=== PATIENT | female | born 1950 | race Caucasian/White ===

== ENCOUNTER 2016-09-27 09:00 | Emergency (ER) | payer BC ==
[2016-09-27] MEDS ORDERED: Ketorolac 60 MG/2 ML SDV IM ONE (09:34)
--- NOTE | 2016-09-27 09:40 | EDM.PDOC ---
ED HPI GENERAL MEDICAL PROBLEM - General Chief Complaint: Lower Extremity Injury/Pain Stated Complaint: RT HIP PAIN Time Seen by Provider: 09/27/16 09:08 Source of Information: Reports: Patient, Family History Limitations: Reports: No Limitations - History of Present Illness INITIAL COMMENTS - FREE TEXT/NARRATIVE: 65 y.o.w.f came to the ed with her family due to acute pain at her right lateral hip. Pt was getting up this am, when suddenly he felt spasm and pain at her lat hip area. 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 Pt had a " stomach ulcer" from taking Motrin PO 1 year ago. No other acute medical issues at this time. Onset: Sudden Onset Date: 09/27/16 Onset Time: 07:00 Duration: Hour(s): Location: Reports: Lower Extremity, Right Quality: Reports: Burning, Dull, Pressure Improves with: Reports: Immobilization Worsens with: Reports: Movement Context: Reports: Activity Associated Symptoms: Reports: No Other Symptoms R hip Pain Score (Numeric/FACES): 5 - Related Data Allergies Allergy/AdvReac Type Severity Reaction Status Date / Time acetaminophen [From Percocet] Allergy Mild Hives Verified 09/27/16 09:15 oxycodone HCl [From Percocet] Allergy Mild Hives Verified 05/06/15 05:59 Sulfa (Sulfonamide Allergy Mild Anaphylactic Verified 05/06/15 05:59 Antibiotics) Shock propoxyphene HCl Allergy Unknown Hives Verified 05/06/15 05:59 [From Darvon] Home Meds: Home Meds Cyclobenzaprine [Flexeril] 10 mg PO TID PRN 09/27/16 [History] Orphenadrine [Norflex] 100 mg PO BID PRN #16 tab.er 09/27/16 [Rx] traMADol [Ultram] 50 mg PO Q6H PRN #16 tab 09/27/16 [Rx] Past Medical History - Past Surgical History Musculoskeletal Surgical History: Reports: Other (See Below) Social & Family History - Tobacco Use Smoking Status *Q: Former Smoker Years of Tobacco use: 35 Packs/Tins Daily: 0.5 Month Tobacco Last Used: UNKNOWN - Recreational Drug Use Recreational Drug Use: No Review of Systems - Review of Systems Review Of Systems: See Below Constitutional: Reports: No Symptoms Eyes: Reports: No Symptoms Ears: Reports: No Symptoms Nose: Reports: No Symptoms Mouth/Throat: Reports: No Symptoms Respiratory: Reports: No Symptoms Cardiovascular: Reports: No Symptoms GI/Abdominal: Reports: No Symptoms Genitourinary: Reports: No Symptoms Musculoskeletal: Reports: Other (r hip pain) Skin: Reports: No Symptoms Neurological: Reports: No Symptoms Psychiatric: Reports: No Symptoms ED EXAM, GENERAL - Physical Exam Exam: See Below Exam Limited By: No Limitations General Appearance: Alert, WD/WN, Mild Distress Eye Exam: Bilateral Eye: Normal Inspection Ears: Normal External Exam Ear Exam: Bilateral Ear: Auricle Normal Nose: Normal Inspection, Normal Mucosa Throat/Mouth: Normal Inspection, Normal Lips Head: Atraumatic, Normocephalic Neck: Normal Inspection, Supple, Non-Tender Respiratory/Chest: No Respiratory Distress, Lungs Clear, Normal Breath Sounds, No Accessory Muscle Use, Chest Non-Tender Cardiovascular: Normal Peripheral Pulses, Regular Rate, Rhythm, No Edema Peripheral Pulses: 2+: Femoral (L), Femoral (R) GI/Abdominal: Normal Bowel Sounds, Soft, Non-Tender, No Organomegaly (Female) Exam: Deferred Rectal (Female) Exam: Deferred Back Exam: Normal Inspection, Full Range of Motion Extremities: Other (tenderness and swelling at the area of the trochanter major) Neurological: Alert, Oriented, CN II-XII Intact, Normal Cognition Psychiatric: Normal Affect, Normal Mood Skin Exam: Warm, Dry, Intact, Normal Color, No Rash Lymphatic: No Adenopathy Course - Vital Signs Text/Narrative:: 65 y.o.w.f came to the ed with her family due to acute pain at her right lateral hip. Pt was getting up this am, when suddenly he felt spasm and pain at her lat hip area. 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 Pt had a " stomach ulcer" from taking Motrin PO 1 year ago. No other acute medical issues at this time. PE: Tenderness and swelling r trochanter major, no trauma Impression: right sided Trochanter bursitis Tx: Toradol IM, Ice. Reexam: Improved Plan: D/C with instructions Last Recorded V/S: Last Vital Signs Temp 36.6 C 09/27/16 09:08 Pulse 85 09/27/16 09:08 Resp 20 09/27/16 09:08 BP 137/69 09/27/16 09:08 Pulse Ox 98 09/27/16 09:08 - Orders/Labs/Meds Orders: Active Orders 24 hr Category Date Time Status Cooling Warming Measures [RC] ASDIRECTED Care 09/27/16 09:33 Ordered Ice Bag [Ice Therapy] [OM.PC] Routine Oth 09/27/16 09:33 Ordered Meds: Medications Discontinued Medications Generic Name Dose Route Start Last Admin Trade Name Freq PRN Reason Stop Dose Admin Ketorolac Tromethamine 60 mg 09/27/16 09:34 09/27/16 09:45 Toradol IM 09/27/16 09:35 60 mg ONETIME ONE Administration Departure - Departure Time of Disposition: 09:46 Disposition: Home, Self-Care 01 Condition: Good Clinical Impression: Trochanteric bursitis of right hip - Discharge Information Prescriptions: Orphenadrine [Norflex] 100 mg PO BID PRN #16 tab.er PRN Reason: leg spasm traMADol [Ultram] 50 mg PO Q6H PRN #16 tab PRN Reason: severe pain Instructions: Trochanteric Bursitis With Rehab-SportsMed Referrals: Allan Ojeda MD [Primary Care Provider] - Forms: ED Department Discharge Additional Instructions: Please apply ICE to the affected area, please take Ultram and Tylenol for pain, please f/u with your regular MD at clinic in 2-3 days, please come back if your symptoms get worse acutely. - My Orders Last 24 Hours: My Active Orders 09/27/16 09:33 Cooling Warming Measures [RC] ASDIRECTED Ice Bag [Ice Therapy] [OM.PC] Routine - Assessment/Plan Last 24 Hours: My Active Orders 09/27/16 09:33 Cooling Warming Measures [RC] ASDIRECTED Ice Bag [Ice Therapy] [OM.PC] Routine
[2016-09-27 10:48] VITALS: BP 132/83
== END 2016-09-27 10:02 | disposition home or self-care (01) ==
LOC: FB.ED 09:00
DX: M70.61 Trochanteric bursitis, right hip (principal); Z88.5 Allergy status to narcotic agent; Z88.8 Allergy status to other drugs, medicaments and biological substances; Z88.2 Allergy status to sulfonamides; Z87.891 Personal history of nicotine dependence
CPT/HCPCS: 96372; 99283; J1885

== ENCOUNTER 2017-09-16 06:42 | Day surgery (SDC) | payer BC ==
[2017-09-16] MEDS ORDERED: Ketorolac 60 MG/2 ML SDV IM ONE (06:56)
--- NOTE | 2017-09-16 06:57 | EDM.PDOC ---
ED HPI GENERAL MEDICAL PROBLEM - General Stated Complaint: LEFT UPPER ARM PAIN Time Seen by Provider: 09/16/17 06:42 Source of Information: Reports: Patient, Family History Limitations: Reports: Physical Impairment (left arm pain) - History of Present Illness INITIAL COMMENTS - FREE TEXT/NARRATIVE: 66 y.o.w.f came with her daughter after the pt fell onto her left shoulder. The dog pulled too strong and made to fall onto her shoulder. Pt denied any other injuries. She has severe pain when abducting her left shoulder/arm. She can move he elbow well. No N/V/D no SOB, Pt does not take , Coumdine are any other blood thinners. She does not take any meds Pt denies any other acute medical issues. BP 135/81 RR 20 Pulse ox 98% on RA temp 36.8 pulse 87 Onset Date: 09/16/17 Onset Time: 05:10 Duration: Minutes: Location: Reports: Upper Extremity, Left Quality: Reports: Ache, Dull, Pressure, Throbbing Severity: Moderate Improves with: Reports: Rest Worsens with: Reports: Movement Context: Reports: Trauma (fall) Associated Symptoms: Reports: No Other Symptoms left shoulder Pain Score (Numeric/FACES): 10 - Related Data Allergies Allergy/AdvReac Type Severity Reaction Status Date / Time acetaminophen [From Percocet] Allergy Mild Hives Verified 09/27/16 09:15 oxycodone HCl [From Percocet] Allergy Mild Hives Verified 05/06/15 05:59 Sulfa (Sulfonamide Allergy Mild Anaphylactic Verified 05/06/15 05:59 Antibiotics) Shock propoxyphene HCl Allergy Unknown Hives Verified 05/06/15 05:59 [From Darvon] Home Meds: Home Meds Acetaminophen/HYDROcodone [Vanduser 325-10 MG] 1 tab PO Q4H PRN #64 tablet [Rx] Docusate Sodium [Colace] 100 mg PO BID PRN cap 09/16/17 [Rx] Past Medical History Gastrointestinal History: Reports: PUD Other Gastrointestinal History: hx bleeding ulcer in past Genitourinary History: Reports: None Musculoskeletal History: Reports: Back Pain, Chronic Psychiatric History: Reports: Depression - Infectious Disease History Infectious Disease History: Reports: Chicken Pox - Past Surgical History Musculoskeletal Surgical History: Reports: Other (See Below) Social & Family History - Family History Family Medical History: Noncontributory - Caffeine Use Caffeine Use: Reports: Coffee, Soda Review of Systems - Review of Systems Review Of Systems: See Below Constitutional: Reports: No Symptoms Eyes: Reports: No Symptoms Ears: Reports: No Symptoms Nose: Reports: No Symptoms Mouth/Throat: Reports: No Symptoms Respiratory: Reports: No Symptoms Cardiovascular: Reports: No Symptoms GI/Abdominal: Reports: No Symptoms Genitourinary: Reports: No Symptoms Musculoskeletal: Reports: No Symptoms Skin: Reports: No Symptoms Neurological: Reports: No Symptoms Psychiatric: Reports: No Symptoms ED EXAM, GENERAL - Physical Exam Exam: See Below Exam Limited By: Physical Impairment (left) General Appearance: Alert, WD/WN, Mild Distress Eye Exam: Bilateral Eye: Normal Inspection Ears: Normal External Exam Ear Exam: Bilateral Ear: Auricle Normal Nose: Normal Inspection, Normal Mucosa, No Blood Throat/Mouth: Normal Lips, Normal Voice, No Airway Compromise Head: Atraumatic, Normocephalic Neck: Normal Inspection, Supple, Non-Tender, Full Range of Motion Respiratory/Chest: No Respiratory Distress, Lungs Clear, Normal Breath Sounds, Chest Non-Tender Cardiovascular: Normal Peripheral Pulses, Regular Rate, Rhythm, No Edema, No Gallop Peripheral Pulses: 1+: Radial (R) GI/Abdominal: Normal Bowel Sounds, Soft, Non-Tender, No Organomegaly (Female) Exam: Deferred Rectal (Female) Exam: Deferred Back Exam: Normal Inspection, Full Range of Motion Extremities: Arm Pain, Limited Range of Motion (left shoulder ) Neurological: Alert, Oriented, CN II-XII Intact, Normal Cognition, Normal Gait Psychiatric: Normal Affect, Normal Mood Skin Exam: Warm, Dry, Intact Lymphatic: No Adenopathy Course - Vital Signs Text/Narrative:: 66 y.o.w.f came with her daughter after the pt fell onto her left shoulder. The dog pulled too strong and made to fall onto her shoulder. Pt denied any other injuries. She has severe pain when abducting her left shoulder/arm. She can move he elbow well. No N/V/D no SOB, Pt does not take , Coumdine are any other blood thinners. She does not take any meds Pt denies any other acute medical issues. BP 135/81 RR 20 Pulse ox 98% on RA temp 36.8 pulse 87 PE: 66 y.o.w.f with left shoulder pain Imaging: left prox humerus Fx, angulated Labs: WBC 19K Neutros 90% BUN 21 Cr 1.1 GFR 50, Na/K Nl Impression: left prox humerus Fx, angulated, closed Tx: Toradol. ICE 6.55 am Consultation: , Ortho: Will do the procedure today. 8.04 am Consultation: Dr. Staley, Hospitalist: Will do the preop physical, Comprehensive, CBC, CXR and EKG Reexam: Improved Plan: Pt went to the OR, Dr. Espinoza took over the care of this patient Last Recorded V/S: Last Vital Signs Temp 36.3 C 09/16/17 12:50 Pulse 94 09/16/17 12:45 Resp 17 09/16/17 14:00 BP 103/72 09/16/17 14:00 Pulse Ox 94 L 09/16/17 14:00 - Orders/Labs/Meds Orders: Active Orders 24 hr Category Date Time Status Patient Status [ADT] Routine ADT 09/16/17 09:11 Active Ambulate [RC] 09,13,17,21 Care 09/16/17 09:14 Active Height and Weight [RC] 07 Care 09/16/17 09:11 Active Intake and Output [RC] 08,16,00 Care 09/16/17 09:14 Active Notify Provider Consults [RC] ASDIRECTED Care 09/16/17 09:17 Active Notify Provider Vital Signs [RC] ASDIRECTED Care 09/16/17 09:14 Active Oxygen Therapy [RC] PRN Care 09/16/17 09:11 Active Up With Assistance [RC] ASDIRECTED Care 09/16/17 09:11 Active VTE/DVT Education [RC] Per Unit Routine Care 09/16/17 09:11 Active Vital Signs [RC] Q4H Care 09/16/17 09:11 Active Consult to Physician [CONS] Routine Cons 09/16/17 09:11 Ordered CXR [Chest 1V Frontal] [CR] Stat Exams 09/16/17 08:32 Taken Fluoro Up To 1Hr [CR] Routine Exams 09/16/17 10:47 Taken Shoulder Comp Lt [CR] Stat Exams 09/16/17 06:51 Taken Peripheral IV Insertion Adult [OM.PC] Routine Oth 09/16/17 08:32 Ordered Sequential Compression Device [OM.PC] Per Unit Routine Oth 09/16/17 09:14 Ordered Resuscitation Status Routine Resus Stat 09/16/17 09:11 Ordered EKG 12 Lead [EK] Routine Ther 09/16/17 08:06 Ordered Labs: Laboratory Tests 09/16/17 09/16/17 09/16/17 Range/Units 08:20 08:20 08:20 WBC 19.7 H (4.5-12.0) X10-3/uL RBC 5.04 (3.23-5.20) x10(6)uL Hgb 15.0 (11.5-15.5) g/dL Hct 45.0 (30.0-51.3) % MCV 89.3 (80-96) fL MCH 29.7 (27.7-33.6) pg MCHC 33.2 (32.2-35.4) g/dL RDW 13.6 (11.5-15.5) % Plt Count 206 (125-369) X10(3)uL MPV 10.1 (7.4-10.4) fL Add Manual Diff Yes Neutrophils % (Manual) 90 H (46-82) % Lymphocytes % (Manual) 8 L (13-37) % Monocytes % (Manual) 2 L (4-12) % Sodium 140 (135-145) mmol/L Potassium 4.0 (3.5-5.3) mmol/L Chloride 103 (100-110) mmol/L Carbon Dioxide 26 (21-32) mmol/L BUN 21 H (7-18) mg/dL Creatinine 1.1 H (0.55-1.02) mg/dL Est Cr Clr Drug Dosing 44.62 mL/min Estimated GFR (MDRD) 50 L (>60) BUN/Creatinine Ratio 19.1 (9-20) Glucose 121 H (80-116) mg/dL Calcium 8.9 (8.6-10.2) mg/dL Total Bilirubin 0.3 (0.1-1.3) mg/dL AST 19 (5-25) IU/L ALT 31 (12-36) U/L Alkaline Phosphatase 98 (56-112) IU/L Total Protein 8.0 (6.0-8.0) g/dL Albumin 3.9 (3.2-4.6) g/dL Globulin 4.1 g/dL Albumin/Globulin Ratio 1.0 Ethyl Alcohol < 0.03 (<0.03) % Meds: Medications Discontinued Medications Generic Name Dose Route Start Last Admin Trade Name Freq PRN Reason Stop Dose Admin Hydrocodone Bitart/Acetaminophen 1 tab 09/16/17 09:18 09/16/17 13:39 Vanduser 325-10 Mg PO 1 tab Q4H PRN Administration shoulder pain > 3 Albuterol 2.5 mg 09/16/17 09:11 Proventil Neb Soln NEB Q2H PRN Shortness Of Breath/wheezing Bupivacaine HCl/Epinephrine Bitart 20 ml 09/16/17 11:40 09/16/17 11:40 Marcaine 0.5%/Epinephrine 1:200,000 .XX 09/16/17 11:41 20 ml .STK-MED ONE Administration Docusate Sodium 100 mg 09/16/17 09:11 Colace PO BID PRN Constipation Sodium Chloride 1,000 mls @ 125 mls/hr 09/16/17 08:45 Normal Saline IV ASDIRECTED [facility] Lactated Ringer's 1,000 mls @ 125 mls/hr 09/16/17 09:15 Ringers, Lactated IV ASDIRECTED [facility] Ketorolac Tromethamine 60 mg 09/16/17 06:56 09/16/17 07:06 Toradol IM 09/16/17 06:57 60 mg ONETIME ONE Administration Ketorolac Tromethamine 30 mg 09/16/17 09:11 09/16/17 16:18 Toradol IVPUSH 30 mg Q6H PRN Administration Pain (moderate 4-6) Morphine Sulfate 2 mg 09/16/17 08:35 09/16/17 09:22 Morphine IV 09/16/17 08:36 Not Given ONETIME STA Morphine Sulfate Confirm 09/16/17 08:40 09/16/17 09:14 Morphine Administered 09/16/17 08:41 2 mg Dose Administration 2 mg .ROUTE .STK-MED ONE Morphine Sulfate 2 mg 09/16/17 09:17 09/16/17 13:39 Morphine IVPUSH 2 mg Q1H PRN Administration Pain Ondansetron HCl 4 mg 09/16/17 09:11 Zofran IV Q4H PRN Nausea/Vomiting Ondansetron HCl 4 mg 09/16/17 09:11 Zofran Odt PO Q4H PRN nausea, able to take PO Pantoprazole Sodium 40 mg 09/16/17 09:45 09/16/17 13:28 Protonix Iv IVPUSH 40 mg Q24H KIM Administration Sodium Chloride 10 ml 09/16/17 08:32 Saline Flush FLUSH ASDIRECTED PRN Keep Vein Open Departure - Departure Time of Disposition: 09:00 Disposition: Refer to Observation Condition: Fair Clinical Impression: Shoulder fracture, left Qualifiers: Encounter type: initial encounter Fracture type: closed Qualified Code(s): S42.92XA - Fracture of left shoulder girdle, part unspecified, initial encounter for closed fracture - Discharge Information - My Orders Last 24 Hours: My Active Orders 09/16/17 06:51 Shoulder Comp Lt [CR] Stat 09/16/17 08:06 EKG 12 Lead [EK] Routine 09/16/17 08:32 CXR [Chest 1V Frontal] [CR] Stat Peripheral IV Insertion Adult [OM.PC] Routine - Assessment/Plan Last 24 Hours: My Active Orders 09/16/17 06:51 Shoulder Comp Lt [CR] Stat 09/16/17 08:06 EKG 12 Lead [EK] Routine 09/16/17 08:32 CXR [Chest 1V Frontal] [CR] Stat Peripheral IV Insertion Adult [OM.PC] Routine
[2017-09-16] MEDS ORDERED: Sodium Chloride 0.9% 10 ML Syringe FLUSH PRN (08:32)
[2017-09-16] MEDS ORDERED: Morphine 10 MG/ML SDV IV STA (08:35)
[2017-09-16] MEDS ORDERED: Morphine 2 MG/ML Syringe ONE (08:40)
[2017-09-16] MEDS ORDERED: Sodium Chloride 0.9% 1,000 ML IV SCH (08:45)
[2017-09-16] MEDS ORDERED: Ondansetron 4 MG/2 ML SDV IV PRN (09:11)
[2017-09-16] MEDS ORDERED: Ketorolac 30 MG/ML SDV IVPUSH PRN (09:11)
[2017-09-16] MEDS ORDERED: Docusate Sodium 100 MG Cap PO PRN (09:11)
[2017-09-16] MEDS ORDERED: Albuterol 0.083% 2.5 MG/3 ML Neb Soln NEB PRN (09:11)
[2017-09-16] MEDS ORDERED: Ondansetron 4 MG Tab.DIS PO PRN (09:11)
[2017-09-16] MEDS ORDERED: Lactated Ringers 1,000 ML IV SCH (09:15)
[2017-09-16] MEDS ORDERED: Morphine 2 MG/ML Syringe IVPUSH PRN (09:17)
[2017-09-16] MEDS ORDERED: Acetaminophen/HYDROcodone 325-10 MG Tab PO PRN (09:18)
--- NOTE | 2017-09-16 09:23 | PCM.CONS ---
H&P History of Present Illness - General Date of Service: 09/16/17 Admit Problem/Dx: Admission Diagnosis/Problem Admission Diagnosis/Problem Shoulder injury Source of Information: Patient History Limitations: Reports: No Limitations - History of Present Illness Initial Comments - Free Text/Narative: Elbert 66 yo female fell when walking her great mayda this morning. Seen in ER with proximal humerus fracture. confirmed on xr. Seen by ER/Hospitalist. Onset of Symptoms: Reports: Today, Sudden Duration of Symptoms: Reports: Hour(s): Location: Reports: Upper Extremity, Left Quality: Reports: Ache, Stabbing, Throbbing Improves with: Reports: Immobilization Worsens with: Reports: Movement Associated Symptoms: Reports: No Other Symptoms left shoulder Pain Score (Numeric/FACES): 10 - Related Data Allergies/Adverse Reactions: Allergies Allergy/AdvReac Type Severity Reaction Status Date / Time acetaminophen [From Percocet] Allergy Mild Hives Verified 09/27/16 09:15 oxycodone HCl [From Percocet] Allergy Mild Hives Verified 05/06/15 05:59 Sulfa (Sulfonamide Allergy Mild Anaphylactic Verified 05/06/15 05:59 Antibiotics) Shock propoxyphene HCl Allergy Unknown Hives Verified 05/06/15 05:59 [From Darvon] Home Medications: Home Meds NK [No Known Home Meds] 09/16/17 [History] Past Medical History Gastrointestinal History: Reports: PUD Other Gastrointestinal History: hx bleeding ulcer in past Genitourinary History: Reports: None Musculoskeletal History: Reports: Back Pain, Chronic Psychiatric History: Reports: Depression - Infectious Disease History Infectious Disease History: Reports: Chicken Pox - Past Surgical History Musculoskeletal Surgical History: Reports: Other (See Below) Social & Family History - Family History Family Medical History: Noncontributory - Tobacco Use Smoking Status *Q: Former Smoker Used Tobacco, but Quit: Yes Month/Year Tobacco Last Used: 150 - Caffeine Use Caffeine Use: Reports: Coffee, Soda - Recreational Drug Use Recreational Drug Use: No H&P Review of Systems - Review of Systems: Review Of Systems: See Below General: Reports: No Symptoms HEENT: Reports: No Symptoms Pulmonary: Reports: No Symptoms Cardiovascular: Reports: No Symptoms Gastrointestinal: Reports: No Symptoms Genitourinary: Reports: No Symptoms Musculoskeletal: Reports: Shoulder Pain Skin: Reports: No Symptoms Psychiatric: Reports: No Symptoms Neurological: Reports: No Symptoms Hematologic/Lymphatic: Reports: No Symptoms Immunologic: Reports: No Symptoms Exam - Exam Exam: See Below - Vital Signs Vital Signs: Last Vital Signs Temp 97.8 F 09/16/17 06:42 Pulse 73 09/16/17 06:42 Resp 20 09/16/17 06:42 BP 135/81 09/16/17 06:42 Pulse Ox 100 09/16/17 06:42 Weight: 155 lb - Exam General: Alert, Oriented HEENT: PERRLA, Conjunctiva Clear, Hearing Intact, Mucosa Moist & Schlater, Pupils Equal, Pupils Reactive Neck: Supple, Trachea Midline Lungs: Normal Respiratory Effort Extremities: Joint Swelling, Limited Range of Motion Peripheral Pulses: 2+: Radial (L) Skin: Warm, Dry, Intact Neurological: Cranial Nerves Intact Neuro Extensive - Mental Status: Alert, Oriented x3, Normal Mood/Affect, Normal Cognition, Memory Intact - Patient Data Lab Results Last 24 hrs: Laboratory Results - last 24 hr 09/16/17 09/16/17 Range/Units 08:20 08:20 WBC 19.7 H (4.5-12.0) X10-3/uL RBC 5.04 (3.23-5.20) x10(6)uL Hgb 15.0 (11.5-15.5) g/dL Hct 45.0 (30.0-51.3) % MCV 89.3 (80-96) fL MCH 29.7 (27.7-33.6) pg MCHC 33.2 (32.2-35.4) g/dL RDW 13.6 (11.5-15.5) % Plt Count 206 (125-369) X10(3)uL MPV 10.1 (7.4-10.4) fL Add Manual Diff Yes Neutrophils % (Manual) 90 H (46-82) % Lymphocytes % (Manual) 8 L (13-37) % Monocytes % (Manual) 2 L (4-12) % Sodium 140 (135-145) mmol/L Potassium 4.0 (3.5-5.3) mmol/L Chloride 103 (100-110) mmol/L Carbon Dioxide 26 (21-32) mmol/L BUN 21 H (7-18) mg/dL Creatinine 1.1 H (0.55-1.02) mg/dL Est Cr Clr Drug Dosing 44.62 mL/min Estimated GFR (MDRD) 50 L (>60) BUN/Creatinine Ratio 19.1 (9-20) Glucose 121 H (80-116) mg/dL Calcium 8.9 (8.6-10.2) mg/dL Total Bilirubin 0.3 (0.1-1.3) mg/dL AST 19 (5-25) IU/L ALT 31 (12-36) U/L Alkaline Phosphatase 98 (56-112) IU/L Total Protein 8.0 (6.0-8.0) g/dL Albumin 3.9 (3.2-4.6) g/dL Globulin 4.1 g/dL Albumin/Globulin Ratio 1.0 Result Diagrams: 09/16/17 08:20 09/16/17 08:20 Consult PN Assessment/Plan POD#: 0 Procedures: Procedures EMERGENCY DEPT VISIT (09/27/16) EMERGENCY DEPT VISIT (06/26/15) EMERGENCY DEPT VISIT (06/26/15) EMERGENCY DEPT VISIT (05/06/15) EMERGENCY DEPT VISIT (01/31/14) RPR S/N/AX/GEN/TRNK 2.5CM/< (01/31/14) THER/PROPH/DIAG INJ SC/IM (09/27/16) X-RAY EXAM L-S SPINE 2/3 VWS (05/06/15) X-RAY EXAM OF PELVIS (05/06/15) (1) Closed fracture of left proximal humerus SNOMED Code(s): 17604935 Code(s): S42.202A - UNSP FRACTURE OF UPPER END OF LEFT HUMERUS, INIT FOR CLOS FX Current Visit: Yes Qualifiers: Encounter type: initial encounter Fracture morphology: other fracture Fracture alignment: displaced Qualified Code(s): S42.292A - Other displaced fracture of upper end of left humerus, initial encounter for closed fracture Problem List Initiated/Reviewed/Updated: Yes Plan: A: 66 yo female left three part proximal humerus fracture, closed P: ORIF today, pain control, f/u 2 weeks in clinic
--- NOTE | 2017-09-16 09:34 | PCM.HP ---
H&P History of Present Illness - General Date of Service: 09/16/17 Admit Problem/Dx: Admission Diagnosis/Problem Admission Diagnosis/Problem Shoulder injury Source of Information: Patient, Family, Old Records, Provider History Limitations: Reports: Other (Pain) - History of Present Illness Initial Comments - Free Text/Narative: Patient is a 66-year-old otherwise very healthy female who presents to the emergency department today after having fallen on her left shoulder when her great Sylvain pulled her off her feet while chasing a rabbit this morning. She landed on her left shoulder and had acute pain in her left shoulder. She also has some discomfort in the left hip particularly anteriorly where she was dragged a little bit. Her glasses flew off but she doesn't think she hit her head and doesn't have any abrasions or bruises. She has no other pain other than in these 2 areas. X-ray shows a proximal humerus fracture displaced which is going to be surgically repaired by Dr. Boudreaux this morning as soon as preoperative clearance is finished. Patient has otherwise been in good health. She's had no upper respiratory symptoms or sinus congestion, sore throat, chest pain, shortness of breath, nausea, vomiting, diarrhea, constipation, no black, bloody or tarry stools, is able to ambulate 6 blocks on level surface without shortness of breath or pain and up 2 flights of steps without chest pain or shortness of breath. In June was sick with influenza and at that time quit smoking. She has occasional alcoholic beverages about every 2-3 months and did have 2 glasses of mixed drinks last night. Past medical history: #1 history of tobacco abuse quit smoking in June 28, 2017. #2 history of asthma not on medications for this. #3 history of peptic ulcer disease with bleeding ulcer in the remote past. #4 history of depression. #5 history of allergies to pain medications as noted below. Has used hydrocodone /APAP without difficulty. Current home medications: None. She's been taking nothing on a regular basis. Has been advised to take a baby aspirin for preventative but doesn't use this. Social history: The patient was about 3 years ago. Tobacco and alcohol use as above. No illicit drug use. She lives alone except for her great Sylvain and a cat. Has 5 children, 4 sons and a daughter and the daughter is here with her today. 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 Family history: The patient's mother of pulmonary fibrosis in her 80s. The patient's father from colon cancer at 64. The patient has 3 brothers in good health. One brother had a kidney removed for cancer a few years ago and has done well since. She has 3 sisters who are in good health. One has hypertension and one has fibromyalgia. left shoulder Pain Score (Numeric/FACES): 10 - Related Data Allergies/Adverse Reactions: Allergies Allergy/AdvReac Type Severity Reaction Status Date / Time acetaminophen [From Percocet] Allergy Mild Hives Verified 09/27/16 09:15 oxycodone HCl [From Percocet] Allergy Mild Hives Verified 05/06/15 05:59 Sulfa (Sulfonamide Allergy Mild Anaphylactic Verified 05/06/15 05:59 Antibiotics) Shock propoxyphene HCl Allergy Unknown Hives Verified 05/06/15 05:59 [From Darvon] Home Medications: Home Meds NK [No Known Home Meds] 09/16/17 [History] Past Medical History Gastrointestinal History: Reports: PUD Other Gastrointestinal History: hx bleeding ulcer in past Genitourinary History: Reports: None Musculoskeletal History: Reports: Back Pain, Chronic Psychiatric History: Reports: Depression - Infectious Disease History Infectious Disease History: Reports: Chicken Pox - Past Surgical History Musculoskeletal Surgical History: Reports: Other (See Below) Social & Family History - Family History Family Medical History: Noncontributory - Tobacco Use Smoking Status *Q: Former Smoker Used Tobacco, but Quit: Yes Month/Year Tobacco Last Used: 150 - Caffeine Use Caffeine Use: Reports: Coffee, Soda - Recreational Drug Use Recreational Drug Use: No H&P Review of Systems - Review of Systems: Review Of Systems: ROS reveals no pertinent complaints other than HPI. Exam - Exam Exam: See Below - Vital Signs Vital Signs: Last Vital Signs Temp 36.6 C 09/16/17 06:42 Pulse 73 09/16/17 06:42 Resp 20 09/16/17 06:42 BP 135/81 09/16/17 06:42 Pulse Ox 100 09/16/17 06:42 Weight: 70.307 kg - Exam General: Alert, Oriented, Moderate Distress HEENT: PERRLA, Conjunctiva Clear, Mucosa Moist & [place], Posterior Pharynx Clear Neck: Supple, Trachea Midline Lungs: Clear to Auscultation, Normal Respiratory Effort Cardiovascular: Regular Rate, Regular Rhythm, Normal S1, Normal S2, Tachycardia GI/Abdominal Exam: Normal Bowel Sounds, Soft, Non-Tender, No Distention Back Exam: Normal Inspection Extremities: Normal Inspection, Normal Range of Motion (Left leg on limited exam shows some erythema in the anterior thigh but no true abrasion. She has no bruising as of yet. She is able to flex and extend at the hip without increased pain. Straight leg lift does not increase pain at the left hip. Pain is precominantly in the left anterior/lateral thigh where the patient landed. No bony tenderness. However, does have distracting injury.), No Pedal Edema Skin: Warm, Dry, Intact Neuro Extensive - Mental Status: Alert, Oriented x3 Psychiatric: Alert, Normal Affect, Normal Mood - Patient Data Lab Results Last 24 hrs: Laboratory Results - last 24 hr 09/16/17 09/16/17 Range/Units 08:20 08:20 WBC 19.7 H (4.5-12.0) X10-3/uL RBC 5.04 (3.23-5.20) x10(6)uL Hgb 15.0 (11.5-15.5) g/dL Hct 45.0 (30.0-51.3) % MCV 89.3 (80-96) fL MCH 29.7 (27.7-33.6) pg MCHC 33.2 (32.2-35.4) g/dL RDW 13.6 (11.5-15.5) % Plt Count 206 (125-369) X10(3)uL MPV 10.1 (7.4-10.4) fL Add Manual Diff Yes Neutrophils % (Manual) 90 H (46-82) % Lymphocytes % (Manual) 8 L (13-37) % Monocytes % (Manual) 2 L (4-12) % Sodium 140 (135-145) mmol/L Potassium 4.0 (3.5-5.3) mmol/L Chloride 103 (100-110) mmol/L Carbon Dioxide 26 (21-32) mmol/L BUN 21 H (7-18) mg/dL Creatinine 1.1 H (0.55-1.02) mg/dL Est Cr Clr Drug Dosing 44.62 mL/min Estimated GFR (MDRD) 50 L (>60) BUN/Creatinine Ratio 19.1 (9-20) Glucose 121 H (80-116) mg/dL Calcium 8.9 (8.6-10.2) mg/dL Total Bilirubin 0.3 (0.1-1.3) mg/dL AST 19 (5-25) IU/L ALT 31 (12-36) U/L Alkaline Phosphatase 98 (56-112) IU/L Total Protein 8.0 (6.0-8.0) g/dL Albumin 3.9 (3.2-4.6) g/dL Globulin 4.1 g/dL Albumin/Globulin Ratio 1.0 Result Diagrams: 09/16/17 08:20 09/16/17 08:20 Imaging Impressions Last 24 hrs: Chest x-ray was negative to my reading. No effusions, lung markings extend out to the full lung la. EKG INTERPRETATION EKG Date: 09/16/17 Rhythm: NSR [place]: Normal P-Wave: Present QRS: Normal ST-T: Normal QT: Normal Comparison: NA - No Prior EKG EKG Interpretation Comments: T wave is inverted in V3 but there is a lot of baseline wander. Otherwise EKG is normal. - Problem List (1) Closed fracture of left proximal humerus SNOMED Code(s): 74686340 ICD Code: S42.202A - UNSP FRACTURE OF UPPER END OF LEFT HUMERUS, INIT FOR CLOS FX Status: Acute Current Visit: Yes Problem Details: To OR. Anticipate the patient will require a short overnight stay for pain management given the difficulty with her previous narcotics and history of peptic ulcer disease. We'll use morphine IV and hydrocodone, IV Toradol. Cleared for surgery as soon as blood alcohol level is back. Qualifiers: Encounter type: initial encounter Fracture morphology: other fracture Fracture alignment: displaced Qualified Code(s): S42.292A - Other displaced fracture of upper end of left humerus, initial encounter for closed fracture (2) History of asthma SNOMED Code(s): 814278955 ICD Code: Z87.09 - PERSONAL HISTORY OF OTHER DISEASES OF THE RESPIRATORY SYSTEM Status: Acute Current Visit: Yes Problem Details: Albuterol nebulizer when necessary. (3) History of stomach ulcers SNOMED Code(s): 790114618 ICD Code: Z87.19 - PERSONAL HISTORY OF OTHER DISEASES OF THE DIGESTIVE SYSTEM Status: Acute Current Visit: Yes Problem Details: Monitor closely for signs of gastritis/bleeding with use of Toradol. Prophylactic PPI. (4) DVT prophylaxis SNOMED Code(s): 908090774, 567984231 ICD Code: [id number] - Status: Acute Current Visit: Yes Problem Details: Ambulation, SCDs. Problem List Initiated/Reviewed/Updated: Yes Orders Last 24hrs: Active Orders 24 hr Category Date Time Status Patient Status [ADT] Routine ADT 09/16/17 09:11 Active Ambulate [RC] PER UNIT ROUTINE Care 09/16/17 09:14 Active Height and Weight [RC] DAILY Care 09/16/17 09:11 Active Intake and Output [RC] QSHIFT Care 09/16/17 09:14 Active Notify Provider Consults [RC] ASDIRECTED Care 09/16/17 09:17 Active Notify Provider Vital Signs [RC] ASDIRECTED Care 09/16/17 09:14 Active Oxygen Therapy [RC] PRN Care 09/16/17 09:11 Active RT Aerosol Therapy [RC] ASDIRECTED Care 09/16/17 09:17 Active Up With Assistance [RC] ASDIRECTED Care 09/16/17 09:11 Active VTE/DVT Education [RC] Per Unit Routine Care 09/16/17 09:11 Active Vital Signs [RC] Q4H Care 09/16/17 09:11 Active Consult to Physician [CONS] Routine Cons 09/16/17 09:11 Ordered Nothing per Oral Now Diet [DIET] Diet 09/16/17 Breakfast Ordered CXR [Chest 1V Frontal] [CR] Stat Exams 09/16/17 08:32 Taken Shoulder Comp Lt [CR] Stat Exams 09/16/17 06:51 Taken BASIC METABOLIC PANEL,BMP [CHEM] AM Lab 09/17/17 05:11 Ordered Blood Alcohol [ETHANOL BLOOD MEDICAL] [CHEM] Stat Lab 09/16/17 08:20 Received CBC WITH AUTO DIFF [HEME] AM Lab 09/17/17 05:11 Ordered Acetaminophen/HYDROcodone [Ulmer 325-10 MG] Med 09/16/17 09:18 Active 1 tab PO Q4H PRN Albuterol [Proventil Neb Soln] Med 09/16/17 09:11 Active 2.5 mg NEB Q2H PRN Docusate Sodium [Colace] Med 09/16/17 09:11 Active 100 mg PO BID PRN Ketorolac [Toradol] Med 09/16/17 09:11 Active 30 mg IVPUSH Q6H PRN Lactated Ringers [Ringers, Lactated] 1,000 ml Med 09/16/17 09:15 Active IV ASDIRECTED Morphine Med 09/16/17 09:17 Active 2 mg IVPUSH Q1H PRN Ondansetron [Zofran ODT] Med 09/16/17 09:11 Active 4 mg PO Q4H PRN Ondansetron [Zofran] Med 09/16/17 09:11 Active 4 mg IV Q4H PRN Sodium Chloride 0.9% [Normal Saline] 1,000 ml Med 09/16/17 08:45 Active IV ASDIRECTED Sodium Chloride 0.9% [Saline Flush] Med 09/16/17 08:32 Active 10 ml FLUSH ASDIRECTED PRN Peripheral IV Insertion Adult [OM.PC] Routine Oth 09/16/17 08:32 Ordered Sequential Compression Device [OM.PC] Per Unit Routine Oth 09/16/17 09:14 Ordered Resuscitation Status Routine Resus Stat 09/16/17 09:11 Ordered EKG 12 Lead [EK] Routine Ther 09/16/17 08:06 Ordered Medication Orders Hydrocodone Bitart/Acetaminophen (Ulmer 325-10 Mg) 1 tab PO Q4H PRN PRN Reason: shoulder pain > 3 Albuterol (Proventil Neb Soln) 2.5 mg NEB Q2H PRN PRN Reason: Shortness Of Breath/wheezing Docusate Sodium (Colace) 100 mg PO BID PRN PRN Reason: Constipation Sodium Chloride (Normal Saline) 1,000 mls @ 125 mls/hr IV ASDIRECTED KIM Lactated Ringer's (Ringers, Lactated) 1,000 mls @ 125 mls/hr IV ASDIRECTED KIM Ketorolac Tromethamine (Toradol) 30 mg IVPUSH Q6H PRN PRN Reason: Pain (moderate 4-6) Morphine Sulfate (Morphine) 2 mg IVPUSH Q1H PRN PRN Reason: Pain Ondansetron HCl (Zofran) 4 mg IV Q4H PRN PRN Reason: Nausea/Vomiting Ondansetron HCl (Zofran Odt) 4 mg PO Q4H PRN PRN Reason: nausea, able to take PO Sodium Chloride (Saline Flush) 10 ml FLUSH ASDIRECTED PRN PRN Reason: Keep Vein Open Assessment/Plan Comment:: When asked about CODE STATUS, the patient initially said immediately "DNR.". However, with further questioning of the patient does feel that she would want resuscitation if she were to fall to the floor immediately or have problems during anesthesia. However if she were to have any risk of living as a vegetable or having a poor outcome where she would no longer be able to take care of herself or would be a burden on her family, she would absolutely not want resuscitation done. She would not want to be maintained on machines. She would not want tube feedings or IV support if she was unable to take oral intake if it meant she would be a burden on others and unable to care for herself. Thus patient is a full code for the purposes of the current hospitalization, with the understanding that if her circumstances changed she would want to be DNR as above.
[2017-09-16] MEDS ORDERED: ceFAZolin 1 GM Vial IV ONE (09:35)
[2017-09-16] MEDS ORDERED: Midazolam 1 MG/ML 2 ML SDV IV ONE (09:35)
[2017-09-16] MEDS ORDERED: Lactated Ringers 1,000 ML IV ONE (09:35)
[2017-09-16] MEDS ORDERED: Ondansetron 4 MG/2 ML SDV IVPUSH ONE (09:35)
[2017-09-16] MEDS ORDERED: hydrOXYzine HCl 50 MG/ML SDV IM ONE (09:35)
[2017-09-16] MEDS ORDERED: Morphine 10 MG/ML SDV IVPUSH ONE (09:35)
[2017-09-16] MEDS ORDERED: Propofol 200 MG/20 ML SDV IV ONE (09:35)
[2017-09-16] MEDS ORDERED: Ketorolac 30 MG/ML SDV IVPUSH ONE (09:35)
[2017-09-16] MEDS ORDERED: Succinylcholine 200 MG/10 ML MDV IV ONE (09:35)
[2017-09-16] MEDS ORDERED: ePHEDrine 50 MG/ML SDV IV ONE (09:35)
[2017-09-16] MEDS ORDERED: Dexamethasone 4 MG/ML 5 ML MDV IVPUSH ONE (09:35)
[2017-09-16] MEDS ORDERED: diphenhydrAMINE 50 MG/ML SDV IVPUSH ONE (09:35)
[2017-09-16] MEDS ORDERED: fentaNYL 100 MCG/2 ML SDV IV ONE (09:35)
[2017-09-16] MEDS ORDERED: Pantoprazole 40 MG Vial IVPUSH SCH (09:45)
[2017-09-16] MEDS ORDERED: Bupivacaine 0.5%/EPINEPHrine 1:200,000 50 ML MDV ONE (11:40)
[2017-09-16 15:11] VITALS: BP 103/72
--- NOTE | 2017-09-16 19:09 | OR ---
DATE OF OPERATION: 09/16/2017 SURGEON: Clay Boudreaux DO PREOPERATIVE DIAGNOSIS: Left proximal humerus fracture, three part. POSTOPERATIVE DIAGNOSIS: Left proximal humerus fracture, three part. PROCEDURE: Open reduction and internal fixation, left proximal humerus. ANESTHESIA: General endotracheal intubation. FLUIDS: Lactated Ringer solution. ESTIMATED BLOOD LOSS: 50 mL. COMPLICATIONS: None. SPECIMENS: None. DISCHARGE DISPOSITION: Stable to PACU. IMPLANT: [place] proximal humerus locking plate, stainless steel. HISTORY/INDICATIONS FOR PROCEDURE: The patient fell earlier while walking a [place]. She was seen in the emergency department this morning. I was then contacted. I then came in and evaluated the patient. Preoperative imaging confirmed the above-mentioned diagnosis. Risks and benefits of the procedure were explained to the patient. Informed consent was obtained. DETAILS OF THE PROCEDURE: The patient was seen preoperatively by myself and the anesthesia staff in the preoperative holding area where the operative site was marked. She was brought to the operative suite by the anesthesia staff where general anesthesia was administered. She was placed into a beach chair position. All extremities were found to be well padded. The neck was slightly flexed. The left upper extremity was then prepped and draped in a sterile manner. Time-out was called identifying the correct patient, correct procedure, the correct site, and the antibiotics had been infiltrated at the appropriate period of time. An incision was made just lateral to the axillary crease up to the level of the ear, just proximal to the coracoid process. Bleeding during the case was controlled with Bovie electrocautery. I carefully used Metzenbaum scissors and DeBakey's, identified the cephalic vein, and then carried it medially. I then used Gelpi's and Weitlaner's for retraction. Going down the deltopectoral interval, I released approximately 1 cm of the proximal pectoralis major insertion. I then went through the clavipectoral fascia and then released the deltoid from any adhesions. The fracture site was visible. There was a split distally which was longitudinally split to the proximal humerus. This was approximately less than 1/4 of the shaft. I identified the biceps tendon and the bicipital groove and then placed a plate with a locking guide on the humerus. I then placed a cortical screw, this was a little bit too proximal, so I did another one distally. I made sure the plate was lateral to the biceps tendon. I then placed another cortical screw distally and then focussed on my locking screws, placing 3 proximal lockers and then confirming good position on x-ray. I then filled and drilled the rest of the proximal locking screws and then took a radiograph, this which showed it was in slight varus, so I angled my distal cortical screws and undid my other cortical screws, so that I could bring it into more valgus. This did correct some of the varus, but it was certainly with an acceptable alignment. We then took the films. I noticed that the 3rd proximal locking screw was through the humeral cortex. This was replaced and measured a 38. We then took final films and then copiously irrigated with saline. I closed the deltopectoral fascia with #1 STRATAFIX in a running manner, followed by subcutaneous closure with #2 STRATAFIX, followed by Prineo. After the Prineo had dried, we then placed sponges and Medipore tape. I did apply 0.5% bupivacaine with epinephrine for local anesthesia. The patient was then transferred back to her hospital bed in a sling and swathe and then allowed to awake from general anesthesia and extubated. She was then taken to the PACU in stable condition. /[id number] MAYA/JACEY
--- NOTE | 2017-09-17 12:18 | CR ---
INDICATION: Trauma, tripped by dog. LEFT SHOULDER: Three views of the left shoulder were obtained, 09/16/2017, and revealed a severely comminuted fracture of the proximal humeral metaphysis, extending towards and possibly involving slightly the joint surface, the humeral head, and the proximal shaft. Medial offset of the distal fracture fragment is noted of up to 2 cm. Separation of some of the comminuted fracture fragments is noted. Sclerotic changes in the proximal shaft of the humerus likely represent bone infarct. Adjacent ribs appear to be intact. Moderate degenerative changes are noted at the AC joint with mild degenerative changes at the glenohumeral joint. IMPRESSION: 1. Comminuted fracture of the proximal humerus with deformity. 2. Osteoarthritis. MTDD
--- NOTE | 2017-09-17 12:21 | CR ---
INDICATION: Preop. CHEST: An AP portable upright view of the chest was obtained 09/16/2017 at 0835 hours and compared with 01/13/2008 and 03/28/2012. The heart appears to be within normal limits in size and shape, allowing for AP positioning. The aorta is somewhat tortuous. A definite active infiltrate or effusion was not identified. There is slight rotation of the chest to the right. IMPRESSION: No acute process. MTDD
--- NOTE | 2017-09-17 12:24 | CR ---
INDICATION: Intraoperative guidance for ORIF comminuted left humeral fracture. C-ARM FLUOROSCOPY IN OR, UP TO ONE HOUR: Eleven images were obtained fluoroscopically with the C-arm unit during the procedure and revealed final images showing good position and alignment of the comminuted humeral fracture fragments with a plate and multiple screws in place. IMPRESSION: Satisfactory appearance post ORIF left humeral comminuted fracture utilizing C-arm fluoroscopy. 0.2 minutes C-arm fluoroscopy time was utilized in OR during ORIF for humeral fracture site. KALEN
== END 2017-09-16 17:50 | disposition home or self-care (01) ==
LOC: FB.ED 06:42 → FB.SDS 09:11 → FB.MS 09:43 → FB.SDS 17:50
PROVIDERS: ATTEND Orthopaedic Surgery
DX: S42.202A Unspecified fracture of upper end of left humerus, initial encounter for closed fracture (principal); M19.90 Unspecified osteoarthritis, unspecified site; J45.909 Unspecified asthma, uncomplicated; F32.9 Major depressive disorder, single episode, unspecified; Z88.2 Allergy status to sulfonamides; Z88.5 Allergy status to narcotic agent; Z88.6 Allergy status to analgesic agent; W19.XXXA Unspecified fall, initial encounter; Y93.K1 Activity, walking an animal; Z87.891 Personal history of nicotine dependence
CPT/HCPCS: 23615; 36415; 71045; 73030; 76000; 80053; 85025; 93005; 96372; 96374; 99285; A9270; C9113; G0480; J0131; J0330; J0690; J1100; J1200; J1885; J2250; J2270; J2405; J2704; J3010; J3410; J3490; J7120; C1713; C1776

== ENCOUNTER 2017-09-18 11:43 | Emergency (ER) | payer BC ==
--- NOTE | 2017-09-18 12:03 | EDM.PDOC ---
ED HPI GENERAL MEDICAL PROBLEM - General Chief Complaint: Lower Extremity Injury/Pain Stated Complaint: LEG PAIN BOTH LEGS Time Seen by Provider: 09/18/17 11:57 Source of Information: Reports: Patient History Limitations: Reports: No Limitations - History of Present Illness INITIAL COMMENTS - FREE TEXT/NARRATIVE: Complains of moderate left thigh pain, swelling, and tingling and mild right thigh pain since yesterday. S/p left shoulder fracture ORIF 2 days ago due to fall. Sent to the ED by Dr. Boudreaux for evaluation. Location: Reports: Lower Extremity, Left, Lower Extremity, Right Quality: Reports: Dull Severity: Moderate - Related Data Allergies Allergy/AdvReac Type Severity Reaction Status Date / Time acetaminophen [From Percocet] Allergy Mild Hives Verified 09/18/17 15:01 oxycodone HCl [From Percocet] Allergy Mild Hives Verified 09/18/17 15:01 Sulfa (Sulfonamide Allergy Mild Anaphylactic Verified 09/18/17 15:01 Antibiotics) Shock propoxyphene HCl Allergy Unknown Hives Verified 09/18/17 15:01 [From Darvon] Home Meds: Home Meds Acetaminophen/HYDROcodone [Mitchell 325-10 MG] 1 tab PO Q4H PRN #64 tablet [Rx] Docusate Sodium [Colace] 100 mg PO BID PRN cap 09/16/17 [Rx] cephALEXin [Keflex] 500 mg PO QID #40 cap 09/18/17 [Rx] Past Medical History Gastrointestinal History: Reports: PUD Other Gastrointestinal History: hx bleeding ulcer in past Genitourinary History: Reports: None Musculoskeletal History: Reports: Back Pain, Chronic Psychiatric History: Reports: Depression - Infectious Disease History Infectious Disease History: Reports: Chicken Pox - Past Surgical History Musculoskeletal Surgical History: Reports: Other (See Below) Social & Family History - Family History Family Medical History: Noncontributory - Caffeine Use Caffeine Use: Reports: Coffee, Soda ED ROS GENERAL - Review of Systems Review Of Systems: See Below Constitutional: Reports: No Symptoms HEENT: Reports: No Symptoms Respiratory: Reports: No Symptoms Cardiovascular: Reports: No Symptoms Endocrine: Reports: No Symptoms GI/Abdominal: Reports: No Symptoms Musculoskeletal: Reports: Other (bilateral leg pain left worse than right) Skin: Reports: No Symptoms Neurological: Reports: Tingling (left thigh) Psychiatric: Reports: No Symptoms Hematologic/Lymphatic: Reports: No Symptoms Immunologic: Reports: No Symptoms ED EXAM, GENERAL - Physical Exam Exam: See Below Exam Limited By: No Limitations General Appearance: Alert, WD/WN, No Apparent Distress Ears: Normal External Exam Nose: Normal Inspection Throat/Mouth: Normal Inspection Head: Atraumatic Neck: Non-Tender Respiratory/Chest: No Respiratory Distress, Lungs Clear, Normal Breath Sounds Cardiovascular: Normal Peripheral Pulses, Regular Rate, Rhythm, No Murmur, No Rub Extremities: Normal Range of Motion, Normal Capillary Refill, Other (left lateral thigh swelling and tenderness, mild left thigh tenderness) Neurological: Alert, Oriented, Normal Gait Psychiatric: Normal Affect, Normal Mood Skin Exam: Normal Color (to legs) Course - Orders/Labs/Meds Labs: Laboratory Tests 09/18/17 09/18/17 Range/Units 13:20 13:20 WBC 17.3 H (4.5-12.0) X10-3/uL RBC 3.82 (3.23-5.20) x10(6)uL Hgb 12.0 D (11.5-15.5) g/dL Hct 34.3 D (30.0-51.3) % MCV 90.0 (80-96) fL MCH 31.4 (27.7-33.6) pg MCHC 34.9 (32.2-35.4) g/dL RDW 14.0 (11.5-15.5) % Plt Count 185 (125-369) X10(3)uL MPV 9.9 (7.4-10.4) fL Add Manual Diff Yes Neutrophils % (Manual) 76 (46-82) % Lymphocytes % (Manual) 19 (13-37) % Monocytes % (Manual) 5 (4-12) % Sodium 140 (135-145) mmol/L Potassium 4.1 (3.5-5.3) mmol/L Chloride 104 (100-110) mmol/L Carbon Dioxide 28 (21-32) mmol/L BUN 23 H (7-18) mg/dL Creatinine 1.0 (0.55-1.02) mg/dL Est Cr Clr Drug Dosing TNP Estimated GFR (MDRD) 56 L (>60) BUN/Creatinine Ratio 23.0 H (9-20) Glucose 103 (80-116) mg/dL Calcium 8.8 (8.6-10.2) mg/dL Meds: Medications Discontinued Medications Generic Name Dose Route Start Last Admin Trade Name Grace PRN Reason Stop Dose Admin Cephalexin 500 mg 09/18/17 15:12 Keflex PO 09/18/17 15:13 ONETIME ONE Ketorolac Tromethamine 30 mg 09/18/17 14:17 09/18/17 14:56 Toradol IM 09/18/17 14:18 30 mg ONETIME ONE Administration - Radiology Interpretation Free Text/Narrative:: BLE venous US doppler: negative for DVT. Left femur XR: NAD - Re-Assessments/Exams Free Text/Narrative Re-Assessment/Exam: 09/18/17 15:12 Pain has improved after Toradol 30mg IM 09/18/17 15:13 Case discussed w/ Dr. Boudreaux, recommends Keflex 500mg qid x 10days and f/u clinic 2 weeks. Departure - Departure Time of Disposition: 15:14 Disposition: Home, Self-Care 01 Condition: Good Clinical Impression: Upper leg pain Qualifiers: Laterality: bilateral Qualified Code(s): M79.651 - Pain in right thigh - Discharge Information *PRESCRIPTION DRUG MONITORING PROGRAM REVIEWED*: No *COPY OF PRESCRIPTION DRUG MONITORING REPORT IN PATIENT LUI: Not Applicable Prescriptions: cephALEXin [Keflex] 500 mg PO QID #40 cap Instructions: Leukocytosis, Musculoskeletal Pain Referrals: Clay Boudreaux DO [Primary Care Provider] - Forms: ED Department Discharge Additional Instructions: Continue Hydrocodone, rest. Fill prescription for Keflex at [facility] in [place].
[2017-09-18] MEDS ORDERED: Ketorolac 60 MG/2 ML SDV IM ONE (14:17)
--- NOTE | 2017-09-18 14:43 | US ---
INDICATION: Pain and swelling bilateral lower extremities, question bilateral DVT. DUPLEX ULTRASOUND, RIGHT LOWER EXTREMITY VEINS: Utilizing 2-D real time, duplex Doppler spectral analysis and color flow imaging, examination of the right lower extremity veins revealed no evidence of deep venous thrombosis or obstruction. Compression views showed no abnormal lack of compression to suggest thrombosis. No evidence of incompetence of the valves was identified. To adequately visualize flow in the right lower extremity veins, augmentation was necessary. IMPRESSION: Duplex ultrasound, right lower extremity veins, shows no evidence of deep venous thrombosis or incompetence. DUPLEX ULTRASOUND, LEFT LOWER EXTREMITY VEINS: Utilizing 2-D real time, duplex Doppler spectral analysis and color flow imaging, examination of the left lower extremity veins revealed no evidence of deep venous thrombosis or obstruction. Compression views showed no abnormal lack of compression to suggest thrombosis. No evidence of incompetence of the valves was identified. IMPRESSION: Duplex ultrasound, left lower extremity veins, shows no evidence of deep venous thrombosis or incompetence. [facility]
--- NOTE | 2017-09-18 14:56 | CR ---
INDICATION: Pain. LEFT FEMUR: Four images of the left femur in frontal and lateral projections were obtained 09/18/2017 - no comparisons. 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 Minimal hypertrophic change is noted at the intercondylar spines at the knee. Small spur off the cranial anterior aspect of the patella is also noted. No significant bone or joint abnormality was suggested otherwise. [facility]
[2017-09-18] MEDS ORDERED: Cephalexin 500 MG Cap PO ONE (15:12)
[2017-09-18 23:05] VITALS: BP 160/85
== END 2017-09-18 15:35 | disposition home or self-care (01) ==
LOC: FB.ED 11:43
DX: M79.651 Pain in right thigh (principal); M79.652 Pain in left thigh; Z88.8 Allergy status to other drugs, medicaments and biological substances; Z88.2 Allergy status to sulfonamides; Z79.899 Other long term (current) drug therapy
CPT/HCPCS: 36415; 73552; 80048; 85025; 93970; 96372; 99284; A9270; J1885

== ENCOUNTER 2021-06-06 07:20 | Day surgery (SDC) | payer MEDICARE, OTHER ==
[~2021-06-06 07:20] MED LIST: Lactated Ringers 1,000 ML IV SCH; Sodium Chloride 0.9% 10 ML Syringe FLUSH PRN
[2021-06-06] MEDS ORDERED: Propofol 200 MG/20 ML SDV IV ONE (07:21)
[2021-06-06] MEDS ORDERED: Glycopyrrolate 0.2 MG/ML 5 ML MDV IV ONE (07:21)
[2021-06-06 08:00] VITALS: BP 110/82; PULSE 98
[2021-06-06] MEDS ORDERED: Piperacillin/Tazobactam 3.375 GM in Sodium Chloride 0.9% 50 ML IV STA (09:49)
[2021-06-06] MEDS ORDERED: HYDROmorphone 2 MG/ML SDV IVPUSH ONE (09:54)
[2021-06-06] MEDS ORDERED: Sodium Chloride 0.9% 1,000 ML IV SCH (10:00)
== END 2021-06-06 11:46 ==
LOC: FB.SDS 07:20
PROVIDERS: ATTEND Surgery
DX: Z12.11 Encounter for screening for malignant neoplasm of colon (principal); K62.1 Rectal polyp; E78.5 Hyperlipidemia, unspecified; I10 Essential (primary) hypertension; K21.9 Gastro-esophageal reflux disease without esophagitis; J44.9 Chronic obstructive pulmonary disease, unspecified; F32.A Depression, unspecified; F41.9 Anxiety disorder, unspecified; Z88.2 Allergy status to sulfonamides; Z88.6 Allergy status to analgesic agent; Z88.5 Allergy status to narcotic agent; Z88.3 Allergy status to other anti-infective agents; Z88.1 Allergy status to other antibiotic agents; Z86.010 Personal history of colon polyps; Z80.0 Family history of malignant neoplasm of digestive organs; Z79.82 Long term (current) use of aspirin; Z79.899 Other long term (current) drug therapy; Z98.890 Other specified postprocedural states; Z90.89 Acquired absence of other organs; Z90.711 Acquired absence of uterus with remaining cervical stump; Z98.51 Tubal ligation status; Z87.891 Personal history of nicotine dependence
CPT/HCPCS: 00812-QZ; 74176; J1170; J2543; J2704; J3490; J7030; J7120